=== PATIENT | male | born 1930 | race Caucasian/White ===

== ENCOUNTER 2016-06-26 09:38 | Day surgery (SDC) | payer MEDICARE ==
[2016-07-17] MEDS ORDERED: CARVEDILOL3.125 MG PO (14:11)
[2016-07-17] MEDS ORDERED: COLACE-DPS100 MG PO (14:11)
[2016-07-17] MEDS ORDERED: FEOSOL-DPS325 MG PO (14:12)
[2016-07-17] MEDS ORDERED: GLUCOPHAGE-DPS500 MG PO (14:12)
[2016-07-17] MEDS ORDERED: EFFEXOR XR75 MG PO (14:12)
[2016-07-17] MEDS ORDERED: MELADOX3 MG PO (14:12)
[2016-07-17] MEDS ORDERED: LIPITOR DPS20 MG PO (14:12)
[2016-07-17] MEDS ORDERED: PROTONIX40 MG PO (14:13)
[2016-07-17] MEDS ORDERED: SYNTHROID DPS0.05 MG PO (14:13)
[2016-07-17] MEDS ORDERED: TYLENOL DPS325 MG PO (14:14)
[2016-07-17] MEDS ORDERED: VITAMIN D31000 UNIT PO (14:14)
== END 2016-06-26 15:14 | disposition home or self-care (01) ==
DX: D12.8 Benign neoplasm of rectum (principal); K63.5 Polyp of colon; K29.50 Unspecified chronic gastritis without bleeding; K22.70 Barrett's esophagus without dysplasia; K21.0 Gastro-esophageal reflux disease with esophagitis; E11.9 Type 2 diabetes mellitus without complications; I10 Essential (primary) hypertension; Z86.73 Personal history of transient ischemic attack (TIA), and cerebral infarction without residual deficits; Z95.1 Presence of aortocoronary bypass graft; Z90.49 Acquired absence of other specified parts of digestive tract; I25.2 Old myocardial infarction; Z79.899 Other long term (current) drug therapy

== ENCOUNTER 2016-07-08 17:14 | Inpatient (IN) | payer MEDICARE ==
[2016-07-17] MEDS ORDERED: COLACE-DPS100 MG PO (14:11)
[2016-07-17] MEDS ORDERED: CARVEDILOL3.125 MG PO (14:11)
[2016-07-17] MEDS ORDERED: FEOSOL-DPS325 MG PO (14:12)
[2016-07-17] MEDS ORDERED: EFFEXOR XR75 MG PO (14:12)
[2016-07-17] MEDS ORDERED: MELADOX3 MG PO (14:12)
[2016-07-17] MEDS ORDERED: GLUCOPHAGE-DPS500 MG PO (14:12)
[2016-07-17] MEDS ORDERED: LIPITOR DPS20 MG PO (14:12)
[2016-07-17] MEDS ORDERED: PROTONIX40 MG PO (14:13)
[2016-07-17] MEDS ORDERED: SYNTHROID DPS0.05 MG PO (14:13)
[2016-07-17] MEDS ORDERED: TYLENOL DPS325 MG PO (14:14)
[2016-07-17] MEDS ORDERED: VITAMIN D31000 UNIT PO (14:14)
== END 2016-07-16 15:22 | disposition short-term general hospital (02) | DRG 64 ==
DX: I63.233 Cerebral infarction due to unspecified occlusion or stenosis of bilateral carotid arteries (principal); G93.40 Encephalopathy, unspecified; Z51.5 Encounter for palliative care; I24.8 Other forms of acute ischemic heart disease; E11.22 Type 2 diabetes mellitus with diabetic chronic kidney disease; I13.0 Hypertensive heart and chronic kidney disease with heart failure and stage 1 through stage 4 chronic kidney disease, or unspecified chronic kidney disease; I50.9 Heart failure, unspecified; E83.42 Hypomagnesemia; T83.511A Infection and inflammatory reaction due to indwelling urethral catheter, initial encounter; N39.0 Urinary tract infection, site not specified; G81.91 Hemiplegia, unspecified affecting right dominant side; E87.1 Hypo-osmolality and hyponatremia; I65.23 Occlusion and stenosis of bilateral carotid arteries; R47.1 Dysarthria and anarthria; R13.10 Dysphagia, unspecified; R47.01 Aphasia; I25.5 Ischemic cardiomyopathy; F01.50 Vascular dementia, unspecified severity, without behavioral disturbance, psychotic disturbance, mood disturbance, and anxiety; D63.1 Anemia in chronic kidney disease; I25.10 Atherosclerotic heart disease of native coronary artery without angina pectoris; R19.00 Intra-abdominal and pelvic swelling, mass and lump, unspecified site; N18.9 Chronic kidney disease, unspecified; E03.9 Hypothyroidism, unspecified; J30.9 Allergic rhinitis, unspecified; I71.2 Thoracic aortic aneurysm, without rupture; N40.1 Benign prostatic hyperplasia with lower urinary tract symptoms; R33.9 Retention of urine, unspecified; H35.30 Unspecified macular degeneration; R91.1 Solitary pulmonary nodule; F41.9 Anxiety disorder, unspecified; F32.9 Major depressive disorder, single episode, unspecified; K21.9 Gastro-esophageal reflux disease without esophagitis; E78.5 Hyperlipidemia, unspecified; N31.9 Neuromuscular dysfunction of bladder, unspecified; Z95.1 Presence of aortocoronary bypass graft; Z86.73 Personal history of transient ischemic attack (TIA), and cerebral infarction without residual deficits; Z79.84 Long term (current) use of oral hypoglycemic drugs; Z66 Do not resuscitate